=== PATIENT | female | born 1960 | race Two or more races ===

== ENCOUNTER 2017-10-11 11:59 | Emergency (ER) | payer OTHER, MEDICARE ==
[~2017-10-11] VITALS: Ht 167.6 cm; Wt 72.6 kg
[2017-10-11 12:03] VITALS: Ht 167.6 cm; Wt 72.6 kg
[2017-10-11] MEDS ORDERED: LOVASTATIN40 MG PO (12:24)
[2017-10-11] MEDS ORDERED: KEPPRA1000 M1 PO (12:25)
[2017-10-11] MEDS ORDERED: ACETAMINOPHEN-H1 TA1 PO (12:26)
[2017-10-11] MEDS ORDERED: COUMADIN4 MG PO (12:27)
[2017-10-11] MEDS ORDERED: CARVEDILOL6.25 M1 PO (12:28)
[2017-10-11] MEDS ORDERED: HCTZ/LISINOPRIL1 TAB PO (12:29)
[2017-10-11] MEDS ORDERED: DOK PLUS PO (12:29)
[2017-10-11] MEDS ORDERED: K-TAB10 MEQ PO (12:30)
[2017-10-11 12:46] LABS: BASOPHIL % 0.5 % (0-2); PLATELET COUNT 194 x10^3mcL (130-400); RED CELL DISTRIBUTION WIDTH 14.4 % (11.5-14.5)
[2017-10-11 13:06] LABS: CALCIUM 8.7 mg/dL (8.5-10.1); CARBON DIOXIDE 24.5 mmol/L (21-32); CHLORIDE SERUM 105 mmol/L (98-107); CREATININE SERUM 0.8 mg/dL (0.6-1.0); GFR1 > 60 mL/min; GLUCOSE SERUM 139 mg/dL (74-106); POTASSIUM SERUM 3.5 mmol/L (3.5-5.1); SODIUM SERUM 142 mmol/L (136-145)
[2017-10-11 13:12] LABS: ALBUMIN 4.1 g/dL (3.4-5.0); ALKALINE PHOSPHATASE 87 U/L (46-116); ALT/SGPT 19 U/L (14-59); AST/SGOT 19 U/L (15-37); TOTAL PROTEIN, SERUM 8.1 g/dL (6.4-8.2)
[2017-10-11 18:27] VITALS: BP 194/94
== END 2017-10-11 18:40 | disposition short-term general hospital (02) ==
LOC: ED 11:59
PROVIDERS: Emergency Medicine
DX: R56.9 Unspecified convulsions (principal); I10 Essential (primary) hypertension; E11.9 Type 2 diabetes mellitus without complications
CPT/HCPCS: J1953; J3490; Q0092